=== PATIENT | female | born 1935 | race Caucasian/White ===

== ENCOUNTER → 2018-12-28 13:11 | Outpatient (CLI) | payer MEDICARE, SELFPAY ==
--- NOTE | 2018-12-28 | DI.MRI.S_ITS ---
PROCEDURE: MR CHEST WO CON INDICATIONS: Contusion of unspecified front wall of thorax, seq COMPARISON: [facility], MR, SHOULDER WITHOUT CONTRAST, 05/28/2012, 12:29. TECHNIQUE: The patient was placed supine in a body coil. Large field of view coronal STIR sequence was obtained. FINDINGS: Suboptimal evaluation due to difficulty with patient positioning and inability to use standard breast surface coil Image quality: Excellent. Overall, there is no definite anterior chest wall edema. No pleural effusion is seen. No pericardial fluid identified. Marrow signal intensity appears grossly unremarkable. Scoliosis is noted. IMPRESSION: Overall, unremarkable examination although degraded by reasons outlined above. No MR evidence to suggest chest wall contusion. Dictated by: Darien Chowdary M.D. on 12/28/2018 at 15:59 Approved by: Darien Chowdary M.D. on 12/28/2018 at 16:08
== END ==
PROVIDERS: PCP Family Medicine; Visit Provider Family Medicine
DX: S20.219S Contusion of unspecified front wall of thorax, sequela (principal)
CPT/HCPCS: 71550